=== PATIENT | male | born 1960 | race African-American/Black ===

== ENCOUNTER 2025-05-14 02:36 | Emergency (ER) | payer MEDICARE, SELFPAY ==
[2025-05-14] VITALS (36 sets, daily range): BP systolic 129–183; BP diastolic 67–89; PULSE 50–78; RESP 9–22; TEMP 36.3; O2SAT 97–100
--- NOTE | ~2025-05-14 | XR_ITS ---
EXAMINATION: XR chest 2V 05/14/2025 03:12 INDICATION: Shortness of breath PROCEDURE: 2 view chest COMPARISON: No prior studies for comparison. FINDINGS: The lungs are clear. The cardiomediastinal silhouette is within normal limits. There are no pleural effusions. There is no pneumothorax suspected. IMPRESSION: 1: NO ACUTE CARDIOPULMONARY DISEASE. Reviewed, dictated and finalized at location A.
--- NOTE | ~2025-05-14 | CT_ITS ---
Clinical Indication: Chest pain, shortness of breath, right lower extremity edema CT Scan of the Chest, Abdomen, and Pelvis with Contrast: Technique: Contiguous sections were acquired throughout the chest, abdomen, and pelvis after intraven ous administration of 100 cc of Omnipaque 350. Dose reduction technique was used on this scan by uti lizing automated exposure control and iterative reconstruction technique. The dose-length product (DL P) was 1807.05 mGy-cm. Findings: There is no evidence of any significant mediastinal, hilar or axillary lymphadenopathy. The mediastin al soft tissues appear normal. No pulmonary embolus seen. No aortic aneurysm or dissection seen. There is no evidence of pleural or pericardial effusion. The lungs are clear. No pulmonary nodules or infiltrates are noted. There is minimal intrahepatic biliary dilatation, of uncertain significance/etiology. Common bile jethro t appears nondilated. The spleen, pancreas, gallbladder, adrenals and kidneys are within normal limit s. No evidence of aortic aneurysm. No lymphadenopathy. No bowel obstruction or bowel wall thickening. There is no evidence to suggest acute appendicitis. Urinary bladder is unremarkable. No pelvic mass evident. No ascites. Impression: Minimal intrahepatic biliary dilatation, of uncertain significance/etiology. Common bile duct is norm al in caliber. Correlate with LFTs. No other significant findings. Reviewed, dictated and finalized at location . Impression: Minimal intrahepatic biliary dilatation, of uncertain significance/etiology. Co mmon bile duct is normal in caliber. Correlate with LFTs. No other significant findings.
--- NOTE | 2025-05-14 02:37 | ECG_ITS ---
Test Date: 2025-05-14 02:42:20 Measurements Intervals [place] Rate: 72 P: 60 HI: 164 QRS: -28 QRSD: 109 T: 19 QT: 395 QTc: 434 Interpretive Statements SINUS RHYTHM WITH OCCASIONAL VENTRICULAR PREMATURE COMPLEXES DELAYED PRECORDIAL R/S TRANSITION BASELINE ARTIFACT- I, II, AVR, AVL BORDERLINE ECG No previous ECG available for comparison Electronically Signed On 05-14-2025 06:26:39 CDT by Chay Toledo D.O.
[2025-05-14 03:00] LABS: Hematocrit 38.5 % (42.0-52.0); Hemoglobin 12.3 g/dL (14.0-18.0); Immature Granulocyte Percent A 0.0 % (0-0.5); Lymphocytes Absolute Auto 1.93 K/mm3 (0.9-3.2); Mean Corpuscular HGB Conc 31.9 g/dl (32-36); Mean Corpuscular Hemoglobin 30.1 pg (26-34); Mean Corpuscular Volume 94.1 fl (80-100); Nucleated Red Blood Cells Absolute Auto 0.000 K/mm3 (0.0-0.012); Nucleated Red Blood Cells Perc 0.0 % (0.0-0.2); Platelet Count Result 158 k/mm3 (150-375); Red Blood Count 4.09 M/mm3 (4.6-6.20); White Blood Count 5.4 K/mm3 (4.5-10.0)
--- NOTE | 2025-05-14 03:05 | PC.NURSE ---
Patient taken to xray via w/c at this time.
[2025-05-14 03:17] LABS: Alanine Aminotransferase 32 U/L (6-50); Albumin Level 4.3 g/dL (3.5-5.1); Alkaline Phosphatase 110 U/L (38-126); Anion Gap 5 mmol/L (4-12); Aspartate Amino Transferase 34 U/L (17-59); Bilirubin,Total 0.6 mg/dL (0.2-1.3); Blood Urea Nitrogen 12 mg/dL (9-20); Calcium 9.0 mg/dL (8.4-10.2); Carbon Dioxide 31 mmol/L (22-30); Chloride 97 mmol/L (98-107); Estimated CRCL calculation 85 ml/min; Estimated Glomerular Filt Rate > 60; Glucose 135 mg/dL (65-110); Lipase 30 U/L (23-300); Potassium 3.9 mmol/L (3.4-5.0); Sodium 133 mmol/L (137-145); Total Protein 7.4 g/dL (6.3-8.2)
[2025-05-14 03:27] LABS: INR 1.1; Partial Thromboplastin Time 28.4 Seconds (22.3-36.8); Prothrombin Time 14.1 Seconds (11.1-14.7)
[2025-05-14 03:28] LABS: Troponin I < 0.012 ng/mL (0.000-0.034)
[2025-05-14] MEDS: Please add drug allergy info to patient profile. 1 EACH XX (03:30)
[2025-05-14] MEDS: ASPIRIN 81 MG CHEWABLE TABLET 324 MG PO (03:30)
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
--- OUTSIDE RECORDS SUMMARY | 2025-05-14 05:48 | XMS_ITS | Continuity of Care Document ---
Author Organization [facility] Address [address] [place] [address] Phone Care Team Providers Care Immersion Metal Cleaner Name Role Phone Kirsty Chawla DO Unavailable Unavailable Procedures Procedure Date Comprehensive Oral Evaluation-New/Est Pt Full Mouth Series Of Radiographic Images Dental Panoramic Radiographic Image Advance Directives Directive Yes / No Effective Date File Name No Information Encounters Encounter Description Practice Location Reason(s) For Visit Diagnoses Date Provider Providers Copied on Encounter [facility] , [address], [place], [place], [id number], tel:[phone] [facility] No Information Denton Lofton. [address], [place], [place], [id number], . tel:[phone] [facility] , [address], [place], [place], [address], tel:[phone] [facility] Encounter for dental exam and cleaning w abnormal findings 201 8 No Information Referring Provider: Tyler Lorenzo, [address], [place], [address] . tel:[phone] [facility] , [address], [place], [place], [address], tel:[phone] Care Guidelines 1 No Information Family History Family Member Type Diagnosis Age At Onset No Information Payers Payer name Insurance type Covered green party ID Authoriza tion(s) No Information Social History Type Description Quantity Date Captured Comments Sex Female Smoking Status No Information Chief Complaint And Reason For Visit No Information Reason For Referral Reason For Referral No Information History Of Present Illness Encounter Date Complaint History Of Prese nt Illness No Information Functional Status Date Functional Assessmen t No Information Instructions Date Instruction Additional Infor mation No Information Assessments Type Assessment Date No Information Patient Care Teams Name Effective Dates (start - stop) Status Members No Information
--- OUTSIDE RECORDS SUMMARY | 2025-05-14 05:48 | XMS_ITS | Continuity of Care Document ---
Author Organization [facility] Address [address] [place] [address] Phone Care Team Providers Care Contact And Service Clerks Supervisor Name Role Phone Robinson Adkins MD Unavailable Unavailable Advance Directives Directive Yes / No Effective Date File Name No Information Encounters Encounter Description Practice Location Reason(s) For Visit Diagnoses Date Provider Providers Copied on Encounter [facility] , [address], [place], [place], [address], [place] tel:[phone] Urgent [facility] No Information Jed Bowers. [address], [place], [place], [address], [place]. tel:[phone] Family History Family Member Type Diagnosis Age At Onset No Information Payers Payer name Insurance type Covered democrat ID Authoriza tion(s) No Information Social History Type Description Quantity Date Captured Comments Sex Male Smoking Status No Information Chief Complaint And [...]
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
--- OUTSIDE RECORDS SUMMARY | 2025-05-14 05:48 | XMS_ITS | Clinical Summary ---
Author Organization [facility] Address [address] [place] [address] Care Team Providers Care Radio Sportscaster Name Role Phone Mohinder Adkins NP Unavailable No, Physician Primary Care Provider [phone] Allergies No known active allergies Medications neomycin-bacitr acnZn-polymyxnB 3.5-500-10,000 nl-ukis-itvt ointmentIndicat ions:Minor Bacterial Skin Infections Apply 1 application topically 3 (three) times a day 28 g 3 Active gabapentin (NEURONTIN) 100 mg capsuleIndicati ons:Neuropathic Pain Take 1 capsule (100 mg total) by mouth 3 (three) times a day Do not stop suddenly 90 capsule 1 3 Active cyclobenzaprine (FLEXERIL) 10 mg tablet Take 1 tablet (10 mg total) by mouth every 8 (eight) hours as needed for muscle spasms 20 tablet 3 Active traMADoL (ULTRAM) 50 mg tablet Take 1 tablet (50 mg total) by mouth every 4 (four) hours as needed for pain 20 tablet 3 Active acetaminophen (TYLENOL) 500 mg tabletIndicatio ns:Pain Take 2 tablets (1,000 mg total) by mouth every 6 (six) hours as needed for pain 30 tablet 5 Active metFORMIN (GLUCOPHAGE) 500 mg tablet Take 1 tablet (500 mg total) by mouth 2 (two) times a day with meals 60 tablet [address] (PROTONIX) 20 mg EC tabletIndicatio ns:Treatment of Non-Bleeding Gastric Disorder,heartb urn Take 1 tablet (20 mg total) by mouth daily 30 tablet 5 Active Active Problems Problem Noted Date Diagnosed Date Chest pain 02/24/2025 Chronic idiopathic constipation 07/10/2024 Abdominal pain, generalized 07/10/2024 Cellulitis 05/14/2022 Hypertension associated with diabetes 10/22/2017 Assessment & Plan (02/21/2019 3:10 PM CDT): - continue current medications with any medication changes identified today for hypertension control - make routine follow ups as scheduled for blood pressure monitoring - labs as ordered to check end organ function - increase raw vegetables in diet - increase activity as tolerated - condition controlled with diet Type 2 diabetes mellitus 10/22/2017 Overview (10/22/2017): Diabetes type 2; Comments: APC 01/13/2017 - Assessment & Plan (02/21/2019 3:08 PM CDT): - close dietary control of carbohydrates - increase raw vegetables in diet - Monitor blood glucose as directed for diabetes management - continue medications with changes as identified for diabetes management - foot care discussed for diabetes management - continue statin for diabetes management - maintain blood pressure control for diabetes management - reviewed available labs - discussed/counseled for diabetic diet - increase activity as tolerated Encounters Date Type Department Care Team Description 05/13/2025 3:45 AM CDT - 05/13/2025 8:08 AM CDT Emergency [facility] Emergency Department [address] [place] [phone] Atypical chest pain (Primary Dx) Discharge Disposition: Discharge to home or self care 02/24/2025 3:27 AM CDT - 02/24/2025 7:03 AM CDT Emergency [facility] Emergency Department [address] [place] [phone] Kirill Corcoran MD Chest pain, unspecified type (Primary Dx) Discharge Disposition: Discharge to home or self care from Last 3 Months Immunizations Immunization Administration Dates Next Due Influenza, Unspecified 07/11/2018(Deferr ed: Patient Refused),10/22/2017(Deferred: Patient Refused),07/11/2017(Deferred: Patient Refused) Td, adsorbed 10/11/2002 Tdap 07/30/2022,07/10/2011 Surgical History Surgery Date Site/Laterality Comments HERNIA REPAIR Hernia repair Medical History Medical History Date Comments Type 2 diabetes mellitus Diabete s type 2; Comments: APC 01/13/2017 - Hypertension Family History Medical History Relation Name Comments Lung cancer Father Cancer, lung; Diabetes type II Mother Diabetes me llitus type 2; Pancreatic cancer Mother Cancer, pa ncreas; Relation Name Status Comments Father Mother Social History Tobacco Use Types Packs/Day Years [...] often do you attend chur ch or mormon services? More than 4 times per year 05/14/2022 Do you belong to any clubs o r organizations such as roman catholic groups, unions, fraternal or athletic groups, [...] on file Legal Sex Male 6:42 PM [employer]AND [employer]ER Gender Identity Not on file Sexual Orientation Not on file Obstetrics History Last Filed Vital Signs Vital Sign Reading Time Taken Comments Blood Pressure 127/83 05/13/2025 8:00 AM CDT Pulse 71 05/13/2025 8:00 AM CDT Temperature 36.7 C (98 F) 05/13/2025 3:11 AM CDT Respiratory Rate 16 05/13/2025 8:00 AM CDT Oxygen Saturation 96% 05/13/2025 8:00 AM CDT Inhaled Oxygen Concentration - - Weight 104.3 kg (230 lb) 05/13/2025 3:11 AM CDT Height 188 cm (6' 2) 02/24/2025 3:23 AM CDT Body Mass Index 29.53 02/24/2025 3:23 AM CDT Plan of Treatment Health Maintenance Due Date Last Done Comments Albumin Creatinine Ratio, Urine 1959 Colon Cancer Screening-Colonoscopy 1959 Dilated Eye Exam 1959 Hepatitis B Screening 1977 Pneumococcal vaccine 65+ (1 of 2 - PCV) 1978 Zoster Vaccine (1 of 2) 2009 Lipid Panel 10/22/2018 10/22/2017, 07/18/2009 Depression Screening 02/22/2020 02/21/2019, 10/22/19 18 Foot Exam 02/22/2020 02/21/2019 Prostate Cancer Screening-PSA 02/21/2021 02/21/2019 Fall Risk Assessment 05/15/2023 05/15/2022, 02/21/2019, 10/22/2017 Hemoglobin A1C 05/26/2024 11/26/2023, 02/0 11/2022, 05/14/2022, Additional history exists Covid-19 Vaccine (3 - 2023-2 5 season) 2024 05/27/2021, 04/29/2021 Well Visit 65+ 2024 Influenza Vaccine (#1) 2025 eGFR 05/13/2026 05/13/2025, 02/08, 01/29/2025, Additional history exists DTaP/Tdap/Td Vaccine (3 - Td or Tdap) 07/30/2032 07/30/2022, 07/10/2011, 10/11/2002 Hepatitis C Screening Completed 11/26/2023, 019 Procedures Procedure Name Priority Date/Time Associated Diagnosis Comments TROPONIN T HIGH-SENSITIVITY 2-HOUR Timed 05/13/2025 6:41 AM CDT XR CHEST PA LATERAL 2 VIEWS ED 05/13/2025 6:16 AM CDT EGFR STAT 05/13/2025 4:24 AM CDT DIFFERENTIAL AUTO STAT 05/13/2025 4:2 4 AM CDT TROPONIN T HIGH-SENSITIVITY SERIES (BASELINE, 2HR, 4HR, 6HR) STAT 05/13/2025 4:24 AM CDT COMPREHENSIVE METABOLIC PANEL STAT 05/13/2025 4:24 AM CDT CBC WITH AUTO DIFFERENTIAL STAT 05/13/2025 4:24 AM CDT POCT GLUCOSE DEVICE Routine 05/13/2025 3 :33 AM CDT ECG 12-LEAD STAT 05/13/2025 3:26 AM CDT TROPONIN T HIGH-SENSITIVITY 2-HOUR Timed 02/24/2025 5:54 AM CDT XR CHEST PA LATERAL 2 VIEWS ED 02/24/2025 4:33 AM CDT EGFR STAT 02/24/2025 3:44 AM CDT DIFFERENTIAL AUTO STAT 02/24/2025 3:4 4 AM CDT TROPONIN T HIGH-SENSITIVITY SERIES (BASELINE, 2HR, 4HR, 6HR) STAT 02/24/2025 3:44 AM CDT COMPREHENSIVE METABOLIC PANEL STAT 02/24/2025 3:44 AM CDT CBC WITH AUTO DIFFERENTIAL STAT 02/24/2025 3:44 AM CDT ECG 12-LEAD STAT 02/24/2025 3:37 AM CDT HEPATITIS PANEL, ACUTE STAT 6:20 PM [employer]AND [employer]ER HEMOGLOBIN A1C STAT 11/26/2023 5:53 PM LAND LEVELER PSA SCREEN Routine 02/21/2019 3:37 PM CDT LIPID PANEL Routine 10/22/2017 8:19 AM LAND LEVELER Hypertension associated with diabetes (HCC) Type 2 diabetes mellitus with other circulatory complication, without long-term current use of insulin (HCC) from Last 3 Months or Most Recently Relevant to Health Maintenance Results * Troponin T high-sensitivity 2-hour (05/13/2025 6:41 AM CDT) Trop T hs 10 <=22 ng/L Comment: Interpretive Data For further hscTnT resources including the diagnostic algorithm and an aid in interpretation, copy and paste this link: https://nrl.testcatalog.org/show/hsTrop Current Interpretive Data last revised 2020. Trop T hs delta -1 ng/L [facility] Trop T hs interp Insignificant [facility] Blood 05/13/2025 6:41 AM CDT 05/13/2025 6:56 AM CDT us Cyndi Jones SILO PAINTER LAB BLOOD ORDERABLES Final Re sult [facility] [address] [place] [address] * XR Chest PA Lateral 2 [...] Pravin Noonan M.D. us Cyndi Juarez Counts SILO PAINTER IMG XR PROCEDURES Final Resul t * Troponin T high-sensitivity series (baseline, 2hr, 4hr, 6hr) (05/13/2025 4:24 AM CDT) [facility] Trop T hs 11 <=22 ng/L Comment: Interpretive Data For further hscTnT resources including the diagnostic algorithm and an aid in interpretation, copy and paste this link: https://nrl.testcatalog.org/show/hsTrop Current Interpretive Data last revised 2020. Blood 05/13/2025 4:24 AM CDT 05/13/2025 4:28 AM CDT us Cyndi Juarez Counts SILO PAINTER LAB BLOOD ORDERABLES Final Re sult [facility] [address] Department of Laboratories [place], [place] [id number] * eGFR (05/13/2025 4:24 AM CDT) [facility] eGFR 74 >=60 mL/min/1. 73 m2 Comment: [...] 4:28 AM CDT us Cyndi Juarez Counts SILO PAINTER LAB BLOOD ORDERABLES Final Re sult [facility] [address] Department [place] [address] * Differential, auto (05/13/2025 4:24 AM CDT) [facility] Neutrophil abs 2.93 1.50 - 6.50 K/cumm Imm gran abs 0.00 0.00 - 0.10 K/cumm [facility] Lymphocyte abs 1.77 0.80 - 3.30 K/cumm [facility] Monocyte abs 0.44 0.20 - 0.80 K/cumm [facility] Eosinophil abs 0.39 0.00 - 0.50 K/cumm [facility] Basophil abs 0.06 0.00 - 0.10 K/cumm [facility] Neutrophil pct 52.3 % [facility] Comment: Interpretive Data Percent cell count reference ranges are not reported, since discordance with absolute values may lead to misinterpretation of CBC data. Current Interpretive Data was last revised on 2018. Imm gran pct 0.0 % [facility] Comment: Interpretive Data Percent cell count reference ranges are not reported, since discordance with absolute values may lead to misinterpretation of CBC data. Current Interpretive Data was last revised on 2018. Lymphocyte pct 31.7 % [facility] Comment: Interpretive Data Percent cell count reference ranges are not reported, since discordance with absolute values may lead to misinterpretation of CBC data. Current Interpretive Data was last revised on 2018. Monocyte pct 7.9 % [facility] Comment: Interpretive Data Percent cell count reference ranges are not reported, since discordance with absolute values may lead to misinterpretation of CBC data. Current Interpretive Data was last revised on 2018. Eosinophil pct 7.0 % [facility] Comment: Interpretive Data Percent cell count reference ranges are not reported, since discordance with absolute values may lead to misinterpretation of CBC data. Current Interpretive Data was last revised on 2018. Basophil pct 1.1 % [facility] Comment: Interpretive Data Percent cell count reference ranges are not reported, since discordance with absolute values may lead to misinterpretation of CBC data. Current Interpretive Data was last revised on 2018. Blood 05/13/2025 4:24 AM CDT 05/13/2025 4:29 AM CDT us Cyndi Jones SILO PAINTER LAB BLOOD ORDERABLES Final Re sult [facility] [address] Department [place] [address] * (ABNORMAL) CBC with auto differential (05/13/2025 4:24 AM CDT) WBC 5.59 3.80 - 9.90 K/cumm Hgb 12.6(L) 13.0 - 17.5 g/dL [facility] Hct 37.8(L) 38.9 - 50.3 % [facility] Plt 166 150 - 400 K/cumm [facility] MPV 10.9 9.1 - 12.3 fL [facility] RBC 4.11(L) 4.30 - 5.80 M/cumm [facility] MCV 92.0 81.3 - 96.4 fL [facility] MCH 30.7 27.1 - 33.3 pg [facility] MCHC 33.3 32.3 - 35.7 g/dL [facility] RDW CV 12.6 11.1 - 14.9 % [facility] RDW SD 42.6 35.7 - 48.1 fL [facility] NRBC abs 0.00 0.00 - 0.01 K/cumm [facility] Blood Venous blood specimen / Unknown 05/13/2025 4:24 AM CDT 05/13/2025 4:29 AM CDT us Cyndi Jones SILO PAINTER LAB BLOOD ORDERABLES Final Re sult [facility] [address] Department [place] [address] * Comprehensive metabolic panel (05/13/2025 4:24 AM CDT) Sodium 142 135 - 145 mmol/L Potassium, pl 4.3 3.3 - 4.9 mmol/L [facility] Chloride 103 97 - 110 mmol/L [facility] CO2 28 22 - 32 mmol/L [facility] Anion gap 11 2 - 15 mmol/L [facility] BUN 14 6 - 25 mg/dL [facility] Creatinine 1.11 0.80 - 1.30 mg/dL [facility] Glucose 108 70 - 199 mg/dL [facility] Comment: Interpretive Data Fasting glucose >/= 126 [...] classification and Diagnosis of Diabetes Diabetes Care 202; 46: S19-S40. Current interpretive data was last revised 2022. Calcium 8.7 8.5 - 10.3 mg/dL [facility] Bilirubin, total 0.5 0.1 - 1.2 mg/dL [facility] Protein, pl 6.9 6.5 - 8.5 g/dL [facility] Albumin 4.2 3.5 - 5.0 g/dL [facility] Alk phos 109 40 - 130 Units/L [facility] ALT 25 7 - 55 Units/L [facility] AST 24 10 - 50 Units/L [facility] Blood 05/13/2025 4:24 AM CDT 05/13/2025 4:28 AM CDT Cyndi Jones SILO PAINTER LAB BLOOD ORDERABLES Final Re sult Performing Organization Address [facility] Co de Phone Number [facility] [address] Department of Laboratories [place], [place] [id number] * POCT glucose (05/13/2025 3:33 AM CDT) [facility] Glucose, POC 124 70 - 199 mg/dL Comment: For Glucose values <35 mg/dl when Hematocrit is >60 mg/dl,the test may not accurately detect significant hypoglycemia,and testing in the Laboratory should be considered if clinically indicated. Blood 05/13/2025 3:33 AM CDT 05/13/2025 3:33 AM CDT us Notinfile Unknown LAB POCT ORDERABLES - DEVICE F inal Result Performing Organization Address [facility] Co de Phone Number [facility] [address] Department [place] [address] * ECG 12 lead (05/13/2025 3:26 AM CDT) 05/13/2025 3:26 AM CDT Narrative [facility] - 05/13/2025 9:22 AM CDT Vent Rate: 82 bpm RR Interval: 727 msec MN Interval: 167 msec QRS Duration: 110 msec QT Interval: 398 msec QTC Interval: 437 msec P-R-T Randolph: 67 - -7 - 34 degrees IMPRESSION: SINUS RHYTHM NORMAL ECG Electronically Signed By: Milton Narayanan MD us Lai Ibarra DO ECG ORDERABLES Final Resul t [facility] * Troponin T high-sensitivity 2-hour (02/24/2025 5:54 AM CDT) Trop T hs 8 <=22 ng/L Comment: Interpretive Data For further hscTnT resources including the diagnostic algorithm and an aid in interpretation, copy and paste this link: https://nrl.testcatalog.org/show/hsTrop Current Interpretive Data last revised 2020. Trop T hs delta 0 ng/L [facility] Trop T hs interp Insignificant [facility] Blood 02/24/2025 5:54 AM CDT 02/24/2025 6:09 AM CDT Kirill Corcoran MD LAB BLOOD ORDERABLES Final Result Performing Organization Address City/[facility]/ZIP Co de Phone Number [facility] [address] Department [place] [address] * XR Chest Pa Lateral 2 Vw (02/24/2025 4:33 AM CDT) Anatomical Region Laterality Modality Body, Chest N/A Computed Radiogr aphy 02/24/2025 2:56 PM CDT Impressions 02/24/2025 2:56 PM CDT No focal opacity suggestive of mass or pneumonia. No pleural effusion or pneumothorax. Cardiomediastinal silhouette is normal. Electronically signed by: Nabeel Vasquez M.D. Narrative 02/24/2025 2:56 PM CDT EXAMINATION: XR CHEST PA LATERAL 2 VIEWS HISTORY: cp Procedure Note Nabeel Vasquez MD - 02/24/2025 EXAMINATION: XR CHEST PA LATERAL 2 VIEWS HISTORY: cp IMPRESSION: No focal opacity suggestive of mass or pneumonia. No pleural effusion or pneumothorax. Cardiomediastinal silhouette is normal. Electronically signed by: Nabeel Vasquez M.D. Kirill Corcoran MD IMG XR PROCEDURES Final Re sult * Troponin T high-sensitivity series (baseline, 2hr, 4hr, 6hr) (02/24/2025 3:44 AM CDT) Trop T hs 8 <=22 ng/L Comment: Interpretive Data For further hscTnT resources including the diagnostic algorithm and an aid in interpretation, copy and paste this link: https://nrl.testcatalog.org/show/hsTrop Current Interpretive Data last revised 2020. Blood 02/24/2025 3:44 AM CDT 02/24/2025 3:57 AM CDT Kirill Corcoran MD LAB BLOOD ORDERABLES Final Result [facility] [address] Department [place] [address] * eGFR (02/24/2025 3:44 AM CDT) Pathologist [facility] [place] eGFR >90 >=60 mL/min/1. 73 m2 Comment: Interpretive Data [...] of Race in Diagnosing Kidney Disease, JASN 202). The CKD-EPI equation should not be used for patients with unstable renal function and has not been validated in children and those over 70. Current interpretive data was last reviewed 2021. Blood 02/24/2025 3:44 AM CDT 02/24/2025 3:57 AM CDT Kirill Corcoran MD LAB BLOOD ORDERABLES Final Result [facility] [address] Department [place] [address] * Differential, auto (02/24/2025 3:44 AM CDT) Neutrophil abs 3.47 1.50 - 6.50 K/cumm Imm gran abs 0.02 0.00 - 0.10 K/cumm [facility] Lymphocyte abs 2.55 0.80 - 3.30 K/cumm [facility] Monocyte abs 0.37 0.20 - 0.80 K/cumm [facility] Eosinophil abs 0.32 0.00 - 0.50 K/cumm [facility] Basophil abs 0.04 0.00 - 0.10 K/cumm [facility] Neutrophil pct 51.2 % [facility] Comment: Interpretive Data Percent cell count reference ranges are not reported, since discordance with absolute values may lead to misinterpretation of CBC data. Current Interpretive Data was last revised on 2018. Imm gran pct 0.3 % [facility] Comment: Interpretive Data Percent cell count reference ranges are not reported, since discordance with absolute values may lead to misinterpretation of CBC data. Current Interpretive Data was last revised on 2018. Lymphocyte pct 37.7 % [facility] Comment: Interpretive Data Percent cell count reference ranges are not reported, since discordance with absolute values may lead to misinterpretation of CBC data. Current Interpretive Data was last revised on 2018. Monocyte pct 5.5 % [facility] Comment: Interpretive Data Percent cell count reference ranges are not reported, since discordance with absolute values may lead to misinterpretation of CBC data. Current Interpretive Data was last revised on 2018. Eosinophil pct 4.7 % [facility] Comment: Interpretive Data Percent cell count reference ranges are not reported, since discordance with absolute values may lead to misinterpretation of CBC data. Current Interpretive Data was last revised on 2018. Basophil pct 0.6 % [facility] Comment: Interpretive Data Percent cell count reference ranges are not reported, since discordance with absolute values may lead to misinterpretation of CBC data. Current Interpretive Data was last revised on 2018. Blood 02/24/2025 3:44 AM CDT 02/24/2025 3:57 AM CDT Kirill Corcoran MD LAB BLOOD ORDERABLES Final Result Performing Organization Address City/[facility]/ZIP Co de Phone Number [facility] [address] Department [place] [address] * (ABNORMAL) CBC with auto differential (02/24/2025 3:44 AM CDT) WBC 6.77 3.80 - 9.90 K/cumm Hgb 12.4(L) 13.0 - 17.5 g/dL [facility] Hct 38.1(L) 38.9 - 50.3 % [facility] Plt 176 150 - 400 K/cumm [facility] MPV 11.2 9.1 - 12.3 fL [facility] RBC 4.01(L) 4.30 - 5.80 M/cumm [facility] MCV 95.0 81.3 - 96.4 fL [facility] MCH 30.9 27.1 - 33.3 pg [facility] MCHC 32.5 32.3 - 35.7 g/dL [facility] RDW CV 13.1 11.1 - 14.9 % [facility] RDW SD 45.5 35.7 - 48.1 fL [facility] NRBC abs 0.00 0.00 - 0.01 K/cumm [facility] Blood 02/24/2025 3:44 AM CDT 02/24/2025 3:57 AM CDT Kirill Corcoran MD LAB BLOOD ORDERABLES Final Result Performing Organization Address [facility]/ZIP Co de Phone Number [facility] [address] Department [place] [address] * (ABNORMAL) Comprehensive metabolic panel (02/24/2025 3:44 AM CDT) Sodium 138 135 - 145 mmol/L Potassium, pl 4.1 3.3 - 4.9 mmol/L [facility] Comment:Hemolyzed; potassium value may be falsely elevated by as much as 0.3 - 0.5 mmol/L. Suggest redraw and reanalysis Chloride 102 97 - 110 mmol/L [facility] CO2 25 22 - 32 mmol/L [facility] Anion gap 11 2 - 15 mmol/L [facility] BUN 15 6 - 25 mg/dL [facility] Creatinine 0.91 0.80 - 1.30 mg/dL [facility] Glucose 140 70 - 199 mg/dL [facility] Comment: Interpretive Data Fasting glucose >/= 126 [...] 2022. Calcium 8.7 8.5 - 10.3 mg/dL [facility] Bilirubin, total 0.4 0.1 - 1.2 mg/dL [facility] Protein, pl 6.9 6.5 - 8.5 g/dL [facility] Albumin 4.1 3.5 - 5.0 g/dL [facility] Alk phos 141(H) 40 - 130 Units/L [facility] ALT 10 7 - 55 Units/L [facility] AST 21 10 - 50 Units/L [facility] Comment:Slightly Hemolyzed S pecimen Blood 02/24/2025 3:44 AM CDT 02/24/2025 3:57 AM CDT Kirill Corcoran MD LAB BLOOD ORDERABLES Final Result Performing Organization Address [facility] Co de Phone Number [facility] [address] Department [place] [address] * ECG 12 lead (02/24/2025 3:37 AM CDT) 02/24/2025 3:37 AM CDT Narrative [facility] - 02/24/2025 8:39 AM CDT Vent Rate: 64 bpm RR Interval: 933 msec MN Interval: 173 msec QRS Duration: 109 msec QT Interval: 403 msec QTC Interval: 412 msec P-R-T Randolph: 55 - -20 - 8 degrees IMPRESSION: SINUS RHYTHM NORMAL ECG Electronically Signed By: Milton Narayanan MD Kirill Corcoran MD ECG ORDERABLES Final Resu lt Performing Organization Address [facility] de Phone Number [facility] [employer] [facility] * Hepatitis panel, acute Blood (11/26/2023 6:20 PM [employer]AND [employer]ELER) Hep A IgM Nonreactive Nonreactive [facility] Comment: Interpretive Data: If Hep A IgM Ab is reported as Equivocal, a new sample should be drawn in two weeks for testing. Current interpretive data was last revised on 19. Hep B core IgM Nonreactive Nonreactive [facility] Comment: Interpretive Data If HepB Core IgM Ab is reported as Equivocal, a new sample should be drawn in two weeks for testing. Current interpretive data was last revised on 19. Hep C Ab Nonreactive Nonreactive [facility] Comment: Interpretive Data Nonreactive: Antibodies to HCV not detected. Does NOT exclude the possibility of recent exposure to HCV. Equivocal: Equivocal for HCV antibodies. Supplemental molecular testing will be automatically performed to determine infection status in accordance with current CDC screening recommendations. Reactive: Positive for HCV antibodies. This may represent current or past HCV infection. Supplemental molecular testing will be automatically performed to determine current infection status in accordance with current CDC screening recommendations. Interpretive data was last revised on 2019. HepBsAg Nonreactive Nonreactive [facility] Blood 11/26/2023 6:20 PM LAND LEVELER 11/26/2023 6:31 PM LAND LEVELER Meryl Lucas DO LAB MICROBIOLOGY - GENERAL ORDERABLES Final Result Performing Organization Address [facility] Co de Phone Number [facility] [address] [place] [address] * (ABNORMAL) Hemoglobin A1c (11/26/2023 5:53 PM LAND LEVELER) Hgb A1C 12.6(H) 4.0 - 5.6 % [facility] Estimated Average Glucose 315 mg/dL [facility] Comment: The ADA recommends reporting an estimated Average Glucose (eAG) with all Hemoglobin A1c results using the equation derived from a study of 507 normal and diabetic adults. Minority populations were underrepresented and children were not included. (Diabetes Care 31:3596-3576, 2007). The eAG is not equivalent to a fasting glucose. Blood 11/26/2023 5:53 PM LAND LEVELER 11/26/2023 5:57 PM LAND LEVELER us Sarah Gomez MD LAB BLOOD ORDERABLES Final Result Performing Organization Address [facility] Co de Phone Number [facility] [address] [place] [address] * PSA screen (02/21/2019 3:37 PM CDT) Pathologist [facility] [place] PSA-Total 0.46 <=3.90 ng/mL [facility] Comment: Interpretive Data AGE SEX REFERENCE INTERVAL 0 minutes-150 years Female None 0 minutes-49 years Male None 50-59 years Male 0-3.90 60-69 years Male 0-5.40 70-79 years Male 0-6.20 80-150 years Male 0-6.20 Current interpretive data last revised 2018. Blood specimen (specimen) 02/21/2019 3:37 PM CDT 02/21/2019 3:37 PM CDT Narrative [facility] - 02/21/2019 5:55 PM CDT Mohinder Adkins SILO PAINTER LAB BLOOD ORDERABLES Final Re sult Performing Organization Address City/State/[facility] Co de Phone Number [facility] [id number] Department [place] [address] * Lipid panel (10/22/2017 8:19 AM LAND LEVELER) Cholesterol 127 100 - 200 mg/dL [facility] Comment: Interpretive Data Desirable: <200 mg/dL Borderline high: 200-239 mg/dL High: >240 mg/dL Current interpretive data was last revised on 2016. Triglycerides 69 10 - 150 mg/dL [facility] Comment: Interpretive Data Desirable: < 150 mg/dL Borderline High: 150 - 199 mg/dL High: 200 - 499 mg/dL Very High: > or = 499 mg/dL Current interpretive data was last revised on 2016. HDL 51 40 - 59 mg/dL [facility] Comment: Interpretive Data Less than 40 mg/dL - Low; A major risk factor for heart disease. Greater than or equal to 60 mg/dL - High; Considered protective of heart disease. Current interpretive data was last revised on 2016. LDL, calculated 62 60 - 129 mg/dL [facility] Comment: Interpretive Data Optimal: < 100 mg/dL Near Optimal: 100 - 129 mg/dL Borderline High: 130 - 159 mg/dL High: > 160 mg/dL Current interpretive data was last revised on 2016. Non-HDL Cholesterol 76 mg/dL [facility] Comment: Interpretive Data When triglycerides are >200 mg/dL, non-HDL C is a secondary target of therapy, with a goal 30 mg/dL higher than the identified LDL-C goal. Current interpretive data was last revised 2016. Blood specimen (specimen) 10/22/2017 8:19 AM LAND LEVELER 10/22/2017 8:19 AM

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
--- NOTE | 2025-05-14 05:52 | ECG_ITS ---
Test Date: 2025-05-14 05:51:35 Measurements Intervals [place] Rate: 54 P: 152 OK: 306 QRS: -18 QRSD: 101 T: 15 QT: 454 QTc: 433 Interpretive Statements SINUS BRADYCARDIA DELAYED PRECORDIAL R/S TRANSITION BASELINE ARTIFACT- I, II, III, AVR, AVL, AVF, V1-V6 BORDERLINE ECG Compared to ECG 05/14/2025 02:42:20 HEART RATE HAS DECREASED Electronically Signed On 05-14-2025 06:29:55 CDT by Chay Toledo D.O.
[2025-05-14 06:41] LABS: Troponin I < 0.012 ng/mL (0.000-0.034)
[2025-05-14 06:51] LABS: NT Pro B Type Natriuretic Pept 72 pg/mL (19.9-100)
[2025-05-14 07:05] LABS: Influenza A QL RT-PCR Negative (Negative); Influenza B QL RT-PCR Negative (Negative); RSV RNA, RT-PCR Negative (Negative); SARS-CoV-2 RNA PCR Negative (Negative)
[2025-05-14 07:37] LABS: Add Urine Microscopic? NO; Appearance Urine Clear (Clear); Glucose Urine UA Negative (Negative); Leukocyte Esterase Ur Negative LEU/UL (Negative); Nitrate Urine Negative (Negative); Specific Grav Ur 1.035 (1.001-1.035)
[2025-05-14 08:13] LABS: Cannabinoid Screen Urine Negative (Negative)
== END 2025-05-14 08:58 | disposition home or self-care (01) ==
PROVIDERS: Emergency Provider Student in an Organized Health Care Education/Training Program
DX: R07.89 Other chest pain (principal); D64.9 Anemia, unspecified; R60.0 Localized edema; M79.10 Myalgia, unspecified site; F14.90 Cocaine use, unspecified, uncomplicated; R06.02 Shortness of breath; Z20.822 Contact with and (suspected) exposure to COVID-19; I10 Essential (primary) hypertension; E11.9 Type 2 diabetes mellitus without complications; I49.3 Ventricular premature depolarization; R00.1 Bradycardia, unspecified
CPT/HCPCS: 36415; 71046; 71275; 74177; 80053; 80307; 81003; 82077; 83690; 83880; 84484; 85025; 85380; 85610; 85730; 87637; 93005; 99284; A9270; Q9967